=== PATIENT | female | born 1990 | race Two or more races ===

== ENCOUNTER 2020-02-07 00:01 | Emergency (ER) | payer MEDICAID ==
[~2020-02-07] VITALS: Ht 157.5 cm; Wt 56.7 kg
[2020-02-07 00:43] LABS: Urine Bacteria FEW /hpf (None Seen); Urine Blood Negative /uL (Negative); Urine Mucus FEW (None Seen); Urine Specific Gravity 1.016 (1.001-1.035); Urine WBC 10 /hpf (0 - 5)
[2020-02-07 00:51] LABS: Alcohol, Urine < 3.0 mg/dL (0-10); Amphetamine Screen, Urine NEGATIVE (NEGATIVE); Barbiturate Scree,Urine NEGATIVE (NEGATIVE); Benzodiazephine Screen, Urine NEGATIVE (NEGATIVE); Cannabinoid Screen, Urine NEGATIVE (NEGATIVE); Cocaine Screen, Urine NEGATIVE (NEGATIVE); Opiate Scree,Urine NEGATIVE (NEGATIVE); Phencyclidine Screen, Urine NEGATIVE (NEGATIVE)
[2020-02-07 01:03] LABS: Basophils # (auto) 0 10 ^3/uL (0-0.2); Basophils % (auto) 0.2 % (0.0-2.0); Eosinophils # (auto) 0.1 10 ^3/uL (0-0.8); Eosinophils % (auto) 1.1 % (0.0-7.0); Hematocrit 35.3 % (36.0-46.0); Lymphocytes # (auto) 2.2 10 ^3/uL (0.4-5.4); Lymphocytes % (auto) 23.3 % (10.0-50.0); Mean Corpuscular Hemoglobin 29.8 pg (28.0-32.0); Mean Corpuscular Hgb Conc. 33.9 g/dL (32.0-36.0); Monocytes # (auto) 0.9 10 ^3/uL (0-1.3); Monocytes % (auto) 9.7 % (0.0-12.0); Neutrophils # (auto) 6.3 10 ^3/uL (1.6-8.6); Neutrophils % (auto) 65.7 % (37.0-80.0); Nucleated Red Blood Cells % 0.1 %; Platelet Count (auto) 218 10^3/uL (140-450); Red Blood Cells 4.01 10^6/uL (4.0-5.20); Red Cell Distribution Width 14.3 % (11.8-14.3); White Blood Cell 9.6 10^3/uL (4.4-10.8)
[2020-02-07 01:17] LABS: INR 0.93 (0.9-1.15); Partial Thromboplastin Time 24.1 sec (23.0-31.2)
[2020-02-07 01:23] LABS: Alanine Aminotransferase 39 U/L (13-56); Albumin 3.1 g/dL (3.4-5.0); Anion Gap 5 (5-15); Aspartate Aminotransferase 25 U/L (15-37); BUN/Creatinine Ratio 19.2; Blood Urea Nitrogen 10 mg/dL (7-18); Calcium 8.4 mg/dL (8.5-10.1); Carbon Dioxide 24 mmol/L (21-32); Chloride 107 mmol/L (98-107); GFR African American 178 mL/min; GFR Non-African American 147 mL/min; Glucose 84 mg/dL (74-106); Potassium 3.7 mmol/L (3.5-5.1); Sodium 136 mmol/L (136-145)
[2020-02-07 01:28] LABS: Alkaline Phosphatase 50 U/L (45-117); Bilirubin, Total 0.2 mg/dL (0.2-1.0); Total Protein 6.8 g/dL (6.4-8.2)
[2020-02-07 03:00] VITALS: BP 114/64
== END 2020-02-07 03:43 | disposition home or self-care (01) ==
LOC: ER 00:04
DX: O23.41 Unspecified infection of urinary tract in pregnancy, first trimester (principal); O99.611 Diseases of the digestive system complicating pregnancy, first trimester; Z3A.10 10 weeks gestation of pregnancy
CPT/HCPCS: 36415; 71045; 80053; 80307; 81001; 83880; 84484; 84702; 85025; 85610; 85730; 93005

== ENCOUNTER 2020-10-24 19:02 | Emergency (ER) | payer MEDICAID ==
[~2020-10-24] VITALS: Ht 157.5 cm; Wt 63.5 kg
[2020-10-24 22:03] VITALS: BP 118/73
[2020-10-24] MEDS ORDERED: IBUPROFEN 800 MG TAB PO ONE (23:00)
== END 2020-10-24 23:15 | disposition home or self-care (01) ==
LOC: ER 19:06
DX: S63.501A Unspecified sprain of right wrist, initial encounter (principal); X58.XXXA Exposure to other specified factors, initial encounter; Y93.89 Activity, other specified; Y92.89 Other specified places as the place of occurrence of the external cause; Y99.8 Other external cause status
CPT/HCPCS: 29125; 73110

== ENCOUNTER 2020-12-16 07:49 | Emergency (ER) | payer MEDICAID ==
[~2020-12-16] VITALS: Ht 157.5 cm; Wt 66.7 kg
[2020-12-16 08:30] VITALS: BP 109/58
== END 2020-12-16 09:32 | disposition home or self-care (01) ==
LOC: ER 07:49
DX: M62.830 Muscle spasm of back (principal); M54.41 Lumbago with sciatica, right side; M54.42 Lumbago with sciatica, left side
CPT/HCPCS: 72100; 73502